=== PATIENT | male | born 1980 | race Caucasian/White ===

== ENCOUNTER 2023-10-24 16:41 | Emergency (ER) | payer BC ==
[2023-10-24] MEDS: Lidocaine 1% 5 ML VIAL INJECT ONE (17:15)
== END 2023-10-24 18:24 | disposition home or self-care (01) ==
LOC: MW.ED 16:41
DX: L02.31 Cutaneous abscess of buttock (principal); L03.317 Cellulitis of buttock; Z75.8 Other problems related to medical facilities and other health care; Z79.899 Other long term (current) drug therapy
CPT/HCPCS: 10060; 99283; 99283-25; J3490